=== PATIENT | female | born 1960 | race African-American/Black ===

== ENCOUNTER 2019-02-06 15:34 | Inpatient (IN) | payer BC ==
[2019-02-06 17:29] LABS: ADD MAN DIFF? NO
[2019-02-06 17:32] LABS: WHITE BLOOD COUNT 4.9 10^3/ul (4.8-10.8)
[2019-02-06 17:32] LABS: BASOPHILS % 0.4 % (0.0-2.0); EOSINOPHILS # 0.3 10^3/ul (0.0-0.5); EOSINOPHILS % 5.1 % (0.0-7.0); HEMATOCRIT 45.9 % (37.0-47.0); MEAN CORPUSCULAR HEMOGLOBIN 28.8 pg (29.0-33.0); MEAN CORPUSCULAR HGB CONC 30.5 g/dl (32.0-37.0); MEAN CORPUSCULAR VOLUME 94.4 fl (82.0-101.0); MONOCYTE # 0.6 10^3/ul (0.3-0.9); MONOCYTES % 12.6 % (0.0-11.0); NEUTROPHILS % 61.5 % (39.0-77.0); PLATELET COUNT 188 10^3/UL (140-415); RED BLOOD COUNT 4.86 10^6/ul (4.20-5.40); RED CELL DISTRIBUTION WIDTH 19.7 % (11.5-14.5)
[2019-02-06 17:53] LABS: MAGNESIUM 2.2 mg/dl (1.7-2.5)
[2019-02-06 17:54] LABS: INR 1.24; PROTIME 15.7 Sec (11.9-14.9); PT RATIO 1.2
[2019-02-06 17:55] LABS: PARTIAL THROMBOPLASTIN TIME 28.4 Sec (23.0-35.0)
[2019-02-06 18:06] LABS: B-TYPE NATRIURETIC PEPTIDE 13100 PG/ML (0-125); TROPONIN-I < 0.012 ng/ml (0.000-0.120)
[2019-02-06] MEDS: FUROSEMIDE 20 MG INJ IV (18:41)
[2019-02-06] MEDS ORDERED: ACETAMINOPHEN 325 MG TAB PO (19:00)
[2019-02-06] MEDS ORDERED: DOCUSATE SODIUM 100 MG CAP PO (19:00)
[2019-02-06] MEDS ORDERED: morphine 2 MG INJ IV (19:00)
[2019-02-06] MEDS ORDERED: MAGNESIUM HYDROXIDE 30ML CUP PO (19:00)
[2019-02-06] MEDS ORDERED: ONDANSETRON 4 MG INJ IV (19:00)
[2019-02-06] MEDS ORDERED: NITROGLYCERIN (SL) 0.4 MG TAB SL (19:00)
[2019-02-06] MEDS ORDERED: LORAZEPAM 2 MG INJ IV (19:00)
[2019-02-06] MEDS ORDERED: hydrALAzine 20 MG INJ IV (19:00)
[2019-02-06] MEDS ORDERED: NACL 0.9% 3 ML SYG IV (19:00)
[2019-02-06 19:35] LABS: ANION GAP 12 (5-13); BLOOD UREA NITROGEN 52 mg/dl (7-20); CALCIUM 9.2 mg/dl (8.4-10.2); CARBON DIOXIDE 19 mmol/L (21-31); CHLORIDE 116 mmol/L (97-110); CREATININE 3.06 mg/dl (0.44-1.00); Estimated GFR 19 mL/min (>60); GLUCOSE 79 mg/dl (70-220); POTASSIUM 5.3 mmol/L (3.5-5.1); SODIUM 147 mmol/L (135-144)
[2019-02-06 19:52] LABS: FREE T4 (FREE THYROXINE) 0.72 ng/dl (0.64-1.79)
[2019-02-06] MEDS: NA POLYST SULFON 15 GM/60 ML BTL PO (20:38)
[2019-02-06] MEDS: HYDROCODONE/APAP (5/325) TAB PO (21:07)
[2019-02-07] MEDS: FUROSEMIDE 20 MG INJ IV ×2 (06:22→17:56)
[2019-02-07 07:18] LABS: ADD MAN DIFF? NO
[2019-02-07 07:25] LABS: WHITE BLOOD COUNT 4.7 10^3/ul (4.8-10.8)
[2019-02-07 07:25] LABS: BASOPHILS % 0.4 % (0.0-2.0); EOSINOPHILS # 0.2 10^3/ul (0.0-0.5); EOSINOPHILS % 4.5 % (0.0-7.0); HEMATOCRIT 44.2 % (37.0-47.0); HEMOGLOBIN 13.3 g/dl (12.0-16.0); LYMPHOCYTES % 20.9 % (15.0-51.0); MEAN CORPUSCULAR HEMOGLOBIN 28.5 pg (29.0-33.0); MEAN CORPUSCULAR HGB CONC 30.1 g/dl (32.0-37.0); MEAN CORPUSCULAR VOLUME 94.6 fl (82.0-101.0); MEAN PLATELET VOLUME 11.7 fl (7.4-10.4); MONOCYTE # 0.7 10^3/ul (0.3-0.9); MONOCYTES % 14.1 % (0.0-11.0); NEUTROPHIL # 2.8 10^3/ul (1.6-7.5); NEUTROPHILS % 59.9 % (39.0-77.0); PLATELET COUNT 167 10^3/UL (140-415); RED BLOOD COUNT 4.67 10^6/ul (4.20-5.40); RED CELL DISTRIBUTION WIDTH 19.9 % (11.5-14.5)
[2019-02-07 07:39] LABS: HEMOGLOBIN A1C 5.9 % (0-5.9)
[2019-02-07 07:45] LABS: CHOLESTEROL 114 mg/dl (100-200)
[2019-02-07 07:45] LABS: CHOL/HDL RATIO 5.1 RATIO; HDL CHOLESTEROL 22 mg/dl (35-98); LDL CHOLESTEROL,CALCULATED 68 mg/dl; TRIGLYCERIDES 121 mg/dl (0-149)
[2019-02-07 07:50] LABS: ANION GAP 10 (5-13); BLOOD UREA NITROGEN 50 mg/dl (7-20); CARBON DIOXIDE 21 mmol/L (21-31); CHLORIDE 117 mmol/L (97-110); CREATININE 2.88 mg/dl (0.44-1.00); Estimated GFR 20 mL/min (>60); GLUCOSE 93 mg/dl (70-220); MAGNESIUM 2.1 mg/dl (1.7-2.5); PHOSPHORUS 5.5 mg/dl (2.5-4.9); POTASSIUM 4.7 mmol/L (3.5-5.1); SODIUM 148 mmol/L (135-144)
[2019-02-07] MEDS: ASPIRIN (EC) 81 MG TAB PO (08:38)
[2019-02-07] MEDS: ISOSORBIDE DINITRATE 20 MG TAB PO ×3 (08:39→21:59)
[2019-02-07] MEDS: APIXABAN 5 MG TABLET PO ×2 (08:39→20:26)
[2019-02-07] MEDS: COLCHICINE 0.6 MG CAP PO ×2 (08:40→20:28)
[2019-02-07] MEDS: ALLOPURINOL 100 MG TAB PO (08:49)
[2019-02-07] MEDS: ALBUTEROL/IPRATROPIUM (NEB) 3 ML AMP HHN (13:50)
[2019-02-07] MEDS: HYDROCODONE/APAP (5/325) TAB PO (17:56)
[2019-02-07 18:34] LABS: CREATINE KINASE 42 IU/L (23-200)
[2019-02-07 18:49] LABS: CK INDEX 5.6; CK-MB 2.34 ng/ml (0.0-2.4); TROPONIN-I 0.016 ng/ml (0.000-0.120)
[2019-02-07] MEDS ORDERED: FUROSEMIDE 250 MG in DEXTROSE 5% 225 ML IV (22:30)
[2019-02-08] MEDS ORDERED: ZOLPIDEM 5 MG TAB PO (00:30)
[2019-02-08 00:53] LABS: ADD UMIC YES; UR ASCORBIC ACID NEGATIVE (NEGATIVE); UR BACTERIA FEW /HPF (NONE SEEN); UR BILIRUBIN (Dip) NEGATIVE (NEGATIVE); UR BLOOD (Dip) NEGATIVE (NEGATIVE); UR CLARITY SLIGHTLY CLOUDY (CLEAR); UR COLOR YELLOW (YELLOW); UR GLUCOSE (Dip) NEGATIVE (NEGATIVE); UR KETONES (Dip) NEGATIVE (NEGATIVE); UR LEUKOCYTE ESTERASE (Dip) 2+ Leu/ul (NEGATIVE); UR NITRITE (Dip) NEGATIVE (NEGATIVE); UR RBC 3 /HPF (0-5); UR SQUAMOUS EPITHELIAL CELL FEW /HPF (FEW); UR TOTAL PROTEIN (Dip) NEGATIVE (NEGATIVE); UR UROBILINOGEN (Dip) NEGATIVE (NEGATIVE); UR WBC 12 /HPF (0-5)
[2019-02-08] MEDS: FUROSEMIDE 250 MG in DEXTROSE 5% 225 ML IV ×2 (01:11→21:48)
[2019-02-08 01:39] LABS: CREATINE KINASE 45 IU/L (23-200)
[2019-02-08 01:41] LABS: CREATININE,URINE RANDOM 60.06 mg/dl (20-320)
[2019-02-08 01:53] LABS: CK INDEX 5.2; CK-MB 2.33 ng/ml (0.0-2.4); TROPONIN-I 0.018 ng/ml (0.000-0.120)
[2019-02-08 01:57] LABS: SODIUM,URINE RANDOM 83 mmol/L (30-90)
[2019-02-08 06:39] LABS: ADD MAN DIFF? NO
[2019-02-08 06:45] LABS: BASOPHILS % 0.5 % (0.0-2.0); EOSINOPHILS # 0.2 10^3/ul (0.0-0.5); HEMATOCRIT 41.7 % (37.0-47.0); HEMOGLOBIN 12.6 g/dl (12.0-16.0); LYMPHOCYTES # 0.8 10^3/ul (0.8-2.9); LYMPHOCYTES % 18.8 % (15.0-51.0); MEAN CORPUSCULAR HEMOGLOBIN 28.6 pg (29.0-33.0); MEAN CORPUSCULAR HGB CONC 30.2 g/dl (32.0-37.0); MEAN CORPUSCULAR VOLUME 94.8 fl (82.0-101.0); MEAN PLATELET VOLUME 11.1 fl (7.4-10.4); MONOCYTE # 0.7 10^3/ul (0.3-0.9); MONOCYTES % 15.6 % (0.0-11.0); NEUTROPHIL # 2.6 10^3/ul (1.6-7.5); NEUTROPHILS % 59.9 % (39.0-77.0); PLATELET COUNT 156 10^3/UL (140-415); RED CELL DISTRIBUTION WIDTH 19.6 % (11.5-14.5)
[2019-02-08 06:45] LABS: WHITE BLOOD COUNT 4.4 10^3/ul (4.8-10.8)
[2019-02-08 07:06] LABS: ANION GAP 12 (5-13); BLOOD UREA NITROGEN 51 mg/dl (7-20); CALCIUM 8.5 mg/dl (8.4-10.2); CARBON DIOXIDE 17 mmol/L (21-31); CHLORIDE 115 mmol/L (97-110); Estimated GFR 21 mL/min (>60); GLUCOSE 95 mg/dl (70-220); POTASSIUM 4.8 mmol/L (3.5-5.1); SODIUM 144 mmol/L (135-144)
[2019-02-08 07:10] LABS: MAGNESIUM 1.9 mg/dl (1.7-2.5)
[2019-02-08 07:10] LABS: PHOSPHORUS 5.7 mg/dl (2.5-4.9)
[2019-02-08] MEDS: APIXABAN 5 MG TABLET PO ×2 (08:51→21:47)
[2019-02-08] MEDS: COLCHICINE 0.6 MG CAP PO ×2 (08:51→21:00)
[2019-02-08] MEDS: ISOSORBIDE DINITRATE 20 MG TAB PO ×3 (08:52→21:46)
[2019-02-08] MEDS: ASPIRIN (EC) 81 MG TAB PO (08:52)
[2019-02-08] MEDS: ALLOPURINOL 100 MG TAB PO (08:53)
[2019-02-08 13:31] LABS: PARATHYROID HORMONE 185.8 pg/ml (24.0-73.0)
[2019-02-08] MEDS: ALBUTEROL/IPRATROPIUM (NEB) 3 ML AMP HHN (16:01)
[2019-02-08] MEDS: ZOLPIDEM 5 MG TAB PO (22:09)
[2019-02-09] MEDS: CEPASTAT LOZENGE MT ×3 (04:13→08:45)
[2019-02-09] MEDS: ALLOPURINOL 100 MG TAB PO (08:45)
[2019-02-09] MEDS: COLCHICINE 0.6 MG CAP PO ×2 (08:45→21:55)
[2019-02-09] MEDS: APIXABAN 5 MG TABLET PO ×2 (08:45→21:55)
[2019-02-09] MEDS: ASPIRIN (EC) 81 MG TAB PO (08:46)
[2019-02-09] MEDS: ISOSORBIDE DINITRATE 20 MG TAB PO ×2 (08:46→12:32)
[2019-02-09 08:52] LABS: ADD MAN DIFF? NO
[2019-02-09 09:16] LABS: ANION GAP 12 (5-13); BLOOD UREA NITROGEN 50 mg/dl (7-20); CALCIUM 9.2 mg/dl (8.4-10.2); CARBON DIOXIDE 21 mmol/L (21-31); CHLORIDE 110 mmol/L (97-110); CREATININE 2.58 mg/dl (0.44-1.00); Estimated GFR 23 mL/min (>60); GLUCOSE 107 mg/dl (70-220); POTASSIUM 4.4 mmol/L (3.5-5.1); SODIUM 143 mmol/L (135-144)
[2019-02-09 10:16] LABS: WHITE BLOOD COUNT 9.9 10^3/ul (4.8-10.8)
[2019-02-09 10:16] LABS: BASOPHILS % 0.2 % (0.0-2.0); EOSINOPHILS # 0.2 10^3/ul (0.0-0.5); EOSINOPHILS % 2.3 % (0.0-7.0); HEMATOCRIT 44.1 % (37.0-47.0); HEMOGLOBIN 13.3 g/dl (12.0-16.0); LYMPHOCYTES # 0.6 10^3/ul (0.8-2.9); LYMPHOCYTES % 6.1 % (15.0-51.0); MEAN CORPUSCULAR HEMOGLOBIN 28.7 pg (29.0-33.0); MEAN CORPUSCULAR HGB CONC 30.2 g/dl (32.0-37.0); MEAN PLATELET VOLUME 12.1 fl (7.4-10.4); MONOCYTE # 0.7 10^3/ul (0.3-0.9); MONOCYTES % 7.3 % (0.0-11.0); NEUTROPHIL # 8.3 10^3/ul (1.6-7.5); NEUTROPHILS % 83.8 % (39.0-77.0); PLATELET COUNT 157 10^3/UL (140-415); RED BLOOD COUNT 4.64 10^6/ul (4.20-5.40); RED CELL DISTRIBUTION WIDTH 19.2 % (11.5-14.5)
[2019-02-09] MEDS: ISOSORBIDE DINITRATE 10 MG TAB PO ×2 (13:00→21:00)
[2019-02-09] MEDS ORDERED: FUROSEMIDE 250 MG in DEXTROSE 5% 225 ML IV (16:00)
[2019-02-09] MEDS: ALBUTEROL/IPRATROPIUM (NEB) 3 ML AMP HHN (17:01)
[2019-02-09 18:34] LABS: HAAIG REFLEX REFLEX FILED
[2019-02-09 19:54] LABS: HEPATITIS B SURFACE ANTIGEN NEGATIVE (NEGATIVE)
[2019-02-09 20:11] LABS: HEPATITIS B CORE ANTIBODY NEGATIVE (NEGATIVE); HEPATITIS C VIRAL ANTIBODY NEGATIVE (NEGATIVE); HIV 1&2 ANTIBODY NEGATIVE (NEGATIVE)
[2019-02-09] MEDS: ZOLPIDEM 5 MG TAB PO (21:55)
[2019-02-09] MEDS: FUROSEMIDE 250 MG in DEXTROSE 5% 225 ML IV (22:01)
[2019-02-10 06:24] LABS: ADD MAN DIFF? NO
[2019-02-10 06:27] LABS: BASOPHILS % 0.2 % (0.0-2.0); EOSINOPHILS # 0.2 10^3/ul (0.0-0.5); EOSINOPHILS % 1.8 % (0.0-7.0); HEMATOCRIT 39.9 % (37.0-47.0); LYMPHOCYTES # 1.1 10^3/ul (0.8-2.9); MEAN CORPUSCULAR HEMOGLOBIN 28.7 pg (29.0-33.0); MEAN CORPUSCULAR HGB CONC 30.1 g/dl (32.0-37.0); MEAN CORPUSCULAR VOLUME 95.5 fl (82.0-101.0); MEAN PLATELET VOLUME 11.2 fl (7.4-10.4); MONOCYTE # 0.9 10^3/ul (0.3-0.9); MONOCYTES % 9.3 % (0.0-11.0); NEUTROPHIL # 7.2 10^3/ul (1.6-7.5); NEUTROPHILS % 76.4 % (39.0-77.0); PLATELET COUNT 148 10^3/UL (140-415); RED BLOOD COUNT 4.18 10^6/ul (4.20-5.40); RED CELL DISTRIBUTION WIDTH 19.1 % (11.5-14.5)
[2019-02-10 06:27] LABS: WHITE BLOOD COUNT 9.4 10^3/ul (4.8-10.8)
[2019-02-10 07:14] LABS: ANION GAP 8 (5-13); BLOOD UREA NITROGEN 54 mg/dl (7-20); CALCIUM 8.5 mg/dl (8.4-10.2); CARBON DIOXIDE 25 mmol/L (21-31); CHLORIDE 108 mmol/L (97-110); CREATININE 2.55 mg/dl (0.44-1.00); Estimated GFR 23 mL/min (>60); GLUCOSE 100 mg/dl (70-220); SODIUM 141 mmol/L (135-144)
[2019-02-10] MEDS: APIXABAN 5 MG TABLET PO ×2 (08:45→20:34)
[2019-02-10] MEDS: ALLOPURINOL 100 MG TAB PO (08:45)
[2019-02-10] MEDS: ASPIRIN (EC) 81 MG TAB PO (08:45)
[2019-02-10] MEDS: COLCHICINE 0.6 MG CAP PO ×2 (08:45→20:34)
[2019-02-10] MEDS: ISOSORBIDE DINITRATE 10 MG TAB PO ×3 (08:46→20:34)
[2019-02-10] MEDS: HYDROCODONE/APAP (5/325) TAB PO ×2 (13:20→20:36)
[2019-02-10] MEDS: FUROSEMIDE 250 MG in DEXTROSE 5% 225 ML IV (13:21)
[2019-02-10 14:07] LABS: ANCA SCREEN NEGATIVE (NEGATIVE)
[2019-02-10 18:06] LABS: MYELOPEROXIDASE ANTIBODY <1.0 AI; PROTEINASE-3 ANTIBODY <1.0 AI
[2019-02-10] MEDS: ALBUTEROL/IPRATROPIUM (NEB) 3 ML AMP HHN (20:59)
[2019-02-10] MEDS: ZOLPIDEM 5 MG TAB PO (23:27)
[2019-02-11] MEDS: ALBUTEROL/IPRATROPIUM (NEB) 3 ML AMP HHN ×4 (02:20→20:14)
[2019-02-11 05:56] LABS: ADD MAN DIFF? NO
[2019-02-11 06:03] LABS: WHITE BLOOD COUNT 5.1 10^3/ul (4.8-10.8)
[2019-02-11 06:03] LABS: BASOPHILS % 0.4 % (0.0-2.0); EOSINOPHILS # 0.3 10^3/ul (0.0-0.5); EOSINOPHILS % 6.1 % (0.0-7.0); HEMATOCRIT 39.7 % (37.0-47.0); HEMOGLOBIN 12.1 g/dl (12.0-16.0); LYMPHOCYTES # 0.9 10^3/ul (0.8-2.9); LYMPHOCYTES % 18.1 % (15.0-51.0); MEAN CORPUSCULAR HEMOGLOBIN 29.2 pg (29.0-33.0); MEAN CORPUSCULAR HGB CONC 30.5 g/dl (32.0-37.0); MEAN CORPUSCULAR VOLUME 95.7 fl (82.0-101.0); MEAN PLATELET VOLUME 11.3 fl (7.4-10.4); MONOCYTE # 0.7 10^3/ul (0.3-0.9); MONOCYTES % 14.4 % (0.0-11.0); NEUTROPHIL # 3.1 10^3/ul (1.6-7.5); NEUTROPHILS % 60.8 % (39.0-77.0); PLATELET COUNT 155 10^3/UL (140-415); RED BLOOD COUNT 4.15 10^6/ul (4.20-5.40); RED CELL DISTRIBUTION WIDTH 18.7 % (11.5-14.5)
[2019-02-11 06:41] LABS: ANION GAP 7 (5-13); BLOOD UREA NITROGEN 54 mg/dl (7-20); CALCIUM 8.6 mg/dl (8.4-10.2); CARBON DIOXIDE 28 mmol/L (21-31); CHLORIDE 106 mmol/L (97-110); CREATININE 2.58 mg/dl (0.44-1.00); Estimated GFR 23 mL/min (>60); GLUCOSE 108 mg/dl (70-220); SODIUM 141 mmol/L (135-144)
[2019-02-11 07:21] LABS: PHOSPHORUS 4.6 mg/dl (2.5-4.9)
[2019-02-11 07:21] LABS: MAGNESIUM 1.8 mg/dl (1.7-2.5)
[2019-02-11] MEDS: COLCHICINE 0.6 MG CAP PO ×2 (08:24→21:00)
[2019-02-11] MEDS: ASPIRIN (EC) 81 MG TAB PO (08:25)
[2019-02-11] MEDS: APIXABAN 5 MG TABLET PO ×2 (08:25→21:01)
[2019-02-11] MEDS: ALLOPURINOL 100 MG TAB PO (08:25)
[2019-02-11] MEDS: ISOSORBIDE DINITRATE 10 MG TAB PO ×3 (08:29→21:00)
[2019-02-11 10:43] LABS: OCCULT BLOOD STOOL POSITIVE (NEGATIVE)
[2019-02-11] MEDS: FUROSEMIDE 250 MG in DEXTROSE 5% 225 ML IV (12:46)
[2019-02-11] MEDS: HYDROCODONE/APAP (5/325) TAB PO (21:18)
[2019-02-11] MEDS: ZOLPIDEM 5 MG TAB PO (22:57)
[2019-02-12] MEDS: ALBUTEROL/IPRATROPIUM (NEB) 3 ML AMP HHN ×4 (01:35→20:05)
[2019-02-12 06:47] LABS: ANION GAP 8 (5-13); BLOOD UREA NITROGEN 54 mg/dl (7-20); CALCIUM 8.8 mg/dl (8.4-10.2); CARBON DIOXIDE 30 mmol/L (21-31); CHLORIDE 103 mmol/L (97-110); CREATININE 2.51 mg/dl (0.44-1.00); Estimated GFR 24 mL/min (>60); GLUCOSE 102 mg/dl (70-220); POTASSIUM 3.9 mmol/L (3.5-5.1); SODIUM 141 mmol/L (135-144)
[2019-02-12] MEDS: COLCHICINE 0.6 MG CAP PO ×2 (09:25→21:16)
[2019-02-12] MEDS: ALLOPURINOL 100 MG TAB PO (09:25)
[2019-02-12] MEDS: ASPIRIN (EC) 81 MG TAB PO (09:25)
[2019-02-12] MEDS: APIXABAN 5 MG TABLET PO ×2 (09:26→21:16)
[2019-02-12] MEDS: ISOSORBIDE DINITRATE 10 MG TAB PO ×3 (09:27→21:00)
[2019-02-12] MEDS ORDERED: FUROSEMIDE 250 MG in DEXTROSE 5% 225 ML IV (09:30)
[2019-02-12] MEDS: HYDROCODONE/APAP (5/325) TAB PO (12:42)
[2019-02-12] MEDS: FUROSEMIDE 250 MG in DEXTROSE 5% 225 ML IV (12:43)
[2019-02-12 19:11] LABS: ANA SCREEN POSITIVE (NEGATIVE)
[2019-02-12] MEDS: GUAIFENESIN 20 MG/ML 5ML CUP PO (22:01)
[2019-02-12] MEDS: ZOLPIDEM 5 MG TAB PO (22:51)
[2019-02-13] MEDS: ALBUTEROL/IPRATROPIUM (NEB) 3 ML AMP HHN ×4 (01:54→20:40)
[2019-02-13] MEDS: GUAIFENESIN 20 MG/ML 5ML CUP PO ×3 (05:06→20:36)
[2019-02-13 07:24] LABS: ANION GAP 9 (5-13); BLOOD UREA NITROGEN 63 mg/dl (7-20); CALCIUM 8.9 mg/dl (8.4-10.2); CARBON DIOXIDE 29 mmol/L (21-31); CHLORIDE 102 mmol/L (97-110); CREATININE 2.36 mg/dl (0.44-1.00); Estimated GFR 25 mL/min (>60); GLUCOSE 94 mg/dl (70-220); SODIUM 140 mmol/L (135-144)
[2019-02-13] MEDS: ISOSORBIDE DINITRATE 10 MG TAB PO ×3 (09:47→20:34)
[2019-02-13] MEDS: COLCHICINE 0.6 MG CAP PO ×2 (09:47→20:34)
[2019-02-13] MEDS: ASPIRIN (EC) 81 MG TAB PO (09:48)
[2019-02-13] MEDS: ALLOPURINOL 100 MG TAB PO (09:48)
[2019-02-13] MEDS: APIXABAN 5 MG TABLET PO ×2 (09:48→20:34)
[2019-02-13] MEDS: FUROSEMIDE 250 MG in DEXTROSE 5% 225 ML IV (13:30)
[2019-02-13 18:21] LABS: ANA PATTERN CENTROMERE
[2019-02-13] MEDS: CEPASTAT LOZENGE MT (20:37)
[2019-02-13] MEDS: ZOLPIDEM 5 MG TAB PO (22:10)
[2019-02-14] MEDS: ALBUTEROL/IPRATROPIUM (NEB) 3 ML AMP HHN ×4 (01:48→19:35)
[2019-02-14] MEDS: HYDROCODONE/APAP (5/325) TAB PO ×2 (02:27→22:17)
[2019-02-14 07:25] LABS: ANION GAP 7 (5-13); BLOOD UREA NITROGEN 74 mg/dl (7-20); CALCIUM 8.9 mg/dl (8.4-10.2); CARBON DIOXIDE 34 mmol/L (21-31); CHLORIDE 99 mmol/L (97-110); CREATININE 2.33 mg/dl (0.44-1.00); Estimated GFR 26 mL/min (>60); GLUCOSE 91 mg/dl (70-220); POTASSIUM 4.3 mmol/L (3.5-5.1); SODIUM 140 mmol/L (135-144)
[2019-02-14] MEDS: COLCHICINE 0.6 MG CAP PO ×2 (08:17→20:30)
[2019-02-14] MEDS: APIXABAN 5 MG TABLET PO ×2 (08:17→20:30)
[2019-02-14] MEDS: ASPIRIN (EC) 81 MG TAB PO (08:17)
[2019-02-14] MEDS: ALLOPURINOL 100 MG TAB PO (08:17)
[2019-02-14] MEDS: ISOSORBIDE DINITRATE 10 MG TAB PO ×3 (08:19→20:29)
[2019-02-14] MEDS: FUROSEMIDE 250 MG in DEXTROSE 5% 225 ML IV (14:04)
[2019-02-14] MEDS: GUAIFENESIN 20 MG/ML 5ML CUP PO (20:30)
[2019-02-14] MEDS: CEPASTAT LOZENGE MT (20:30)
[2019-02-14] MEDS: ZOLPIDEM 5 MG TAB PO (23:04)
== END 2019-02-14 23:15 | disposition short-term general hospital (02) | DRG 291 ==
LOC: E/R 15:34 → TEL 19:15
PROVIDERS: Internal Medicine
DX: I13.0 Hypertensive heart and chronic kidney disease with heart failure and stage 1 through stage 4 chronic kidney disease, or unspecified chronic kidney disease (principal); I50.21 Acute systolic (congestive) heart failure; Z68.42 Body mass index [BMI] 45.0-49.9, adult; I82.509 Chronic embolism and thrombosis of unspecified deep veins of unspecified lower extremity; N17.9 Acute kidney failure, unspecified; I27.20 Pulmonary hypertension, unspecified; I27.81 Cor pulmonale (chronic); E66.01 Morbid (severe) obesity due to excess calories; I95.9 Hypotension, unspecified; N18.3 Chronic kidney disease, stage 3 (moderate); Z79.01 Long term (current) use of anticoagulants; I25.10 Atherosclerotic heart disease of native coronary artery without angina pectoris; M10.9 Gout, unspecified; N26.9 Renal sclerosis, unspecified; Z79.82 Long term (current) use of aspirin
CPT/HCPCS: 36415; 71045; 71250; 76536; 78582; 80048; 80061; 81001; 81003; 82270; 82550; 82553; 83036; 83735; 83880; 83970; 84100; 84155; 84300; 84439; 84443; 84484; 85025; 85378; 85610; 85730; 86021; 86038; 86703; 86704; 86709; 86803; 87086; 87340; 93005; 93306; 93970; 94640; 94660; 96374; 97110; 97116; 97162; 97165; 97535; 99285-25